=== PATIENT | male | born 1980 | race African-American/Black ===

== ENCOUNTER 2017-03-03 14:34 | Emergency (ER) | payer BC ==
[2017-03-03 14:43] VITALS: TEMP 98.3; BMI 29.2
[2017-03-03] MEDS ORDERED: SODIUM CHLORIDE 1,000 ML IV STA (15:22)
[2017-03-03] MEDS ORDERED: FAMOTIDINE 20 MG/50 ML IVPB 50 ML IVPB ONE ×2 (15:22→15:42)
[2017-03-03] MEDS ORDERED: ONDANSETRON 4 MG/2 ML VIAL IVPUSH ONE (15:22)
--- NOTE | 2017-03-03 15:27 | PDOC ---
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 The vomiting started out once per day on Thursday, but has worsened to every time eats/drinks over the past 24 hours. Notably, he went out drinking prior to the onset on Thursday. He has 2/10 constant non-radiating upper abdominal pain. He had a similar episode of nausea/vomiting two weeks ago when he was on vacation at a resort in [place]. He also drank a large amount of alcohol just prior to the onset at that time. Past History - Past Medical History Allergies/Adverse Reactions: Allergies Allergy/AdvReac Type Severity Reaction Status Date / Time No Known Drug Allergies Allergy Verified 03/03/17 14:35 nut - unspecified Allergy Verified 03/03/17 14:35 shellfish derived Allergy Verified 03/03/17 14:35 SHRIMP Allergy Swelling Uncoded 03/03/17 14:35 Home Medications: Ambulatory Orders Ondansetron [Zofran Odt -] 4 mg SL TID #15 od.tablet 10/31/15 Pantoprazole Sodium [Protonix] 40 mg PO BID #20 tablet. 10/31/15 Sucralfate [Carafate] 1 gm PO QID #56 tablet 10/31/15 Asthma: Yes GI Disorders: Yes (duodenal ulcer) HTN: Yes (border line) - Suicide/Smoking/Psychosocial Hx Smoking History: Never smoked Have you smoked in the past 12 months: No Information on smoking cessation initiated: No Hx Alcohol Use: No Drug/Substance Use Hx: No Substance Use Type: None Review of Systems - Review of Systems Constitutional: No: Chills, Fever, Unexplained wgt Loss HEENTM: No: Nose Congestion, Throat Pain Respiratory: No: Cough, Shortness of Breath Cardiac (ROS): No: Chest Pain, Palpitations ABD/GI: Yes: Nausea, Vomiting, Other (abdominal pain). No: Constipated, Diarrhea : No: Burning, Dysuria Musculoskeletal: No: Back Pain, Neck Pain Integumentary: No: Bruising, Rash Neurological: No: Headache, Numbness, Tingling, Weakness, Dizziness Endocrine: No: Unexplained Weight Gain, Unexplained Weight Loss *Physical Exam - Vital Signs Last Vital Signs Temp Pulse Resp BP Pulse Ox 98.3 F 93 H 18 175/119 100 03/03/17 14:36 03/03/17 14:36 03/03/17 14:36 03/03/17 14:36 03/03/17 14:36 - Physical Exam General Appearance: Yes: Nourished, Appropriately Dressed, Other (well- appearing and nontoxic male texting on phone but conversive with examiner, answers questions appropriately). No: Apparent Distress HEENT: positive: EOMI, Normal Voice, Hearing Grossly Normal. negative: Scleral Icterus (R), Scleral Icterus (L), Nasal Congestion Neck: positive: Trachea midline, Supple. negative: Tender, Rigid Respiratory/Chest: positive: Lungs Clear, Normal Breath Sounds. negative: Respiratory Distress, Crackles, Rhonchi, Stridor, Wheezing Cardiovascular: positive: Regular Rhythm, Regular Rate. negative: Murmur Gastrointestinal/Abdominal: positive: Normal Bowel Sounds, Tender (minimal epigastric tenderness), Soft. negative: Organomegaly, Pulsatile Mass, Guarding Musculoskeletal: positive: Normal Inspection. negative: Decreased Range of Motion, Vertebral Tenderness Extremity: positive: Normal Capillary Refill, Normal Inspection, Normal Range of Motion. negative: Tender, Cyanosis Integumentary: positive: Normal Color, Dry, Warm. negative: Erythema, Rash, Bruising Neurologic: positive: vp care management II-XII NML intact (grossly), Fully Oriented, Alert, Normal Mood/Affect, Normal Response, Motor Strength 5/5 ED Treatment Course - LABORATORY CBC & Chemistry Diagram: 03/03/17 15:29 03/03/17 15:29 Medical Decision Making - Medical Decision Making 36 yom p/w nausea, vomiting, epigastric pain shortly after trip to [place] and nights of heavy drinking. Exam without active vomiting but with epigastric tenderness. DDX includes but not limited to pancreatitis, gastritis, cholecystitis, PUD, constipation/gas. Ordered is CBCD, CMP, Mg, Phos, lipase, NS bolus, Zofran, Pepcid. Lipase is negative, LFTs not concerning, unlikely pancreatitis or cholecystitis. BUN and Cr are elevated and when this is discussed with the Pt he states this is chronic. Symptoms resolve completely with ED medications. Most likely this is gastritis (likely alcoholic) given pattern of flare immediately after drinking. He is counseled to avoid alcohol and take Pepcid OTC bid. He is also counseled on his chronically elevated renal function tests. States this is familial and was diagnosed in his teens. Also has hypertension on vitals which he notes is chronic as well, asymptomatic. He states he will call a new PCP and tray room worker tomorrow morning for continuing care. Referral info given for PCP and nephrology. He is appropriate for discharge home with close outpatient follow up. Return precautions are discussed. *DC/Admit/Observation/Transfer Diagnosis at time of Disposition: Nausea & vomiting Qualifiers: Vomiting type: unspecified Vomiting Intractability: non-intractable Qualified Code(s): R11.2 - Nausea with vomiting, unspecified - Discharge Dispostion Disposition: HOME Condition at time of disposition: Stable Admit: No - Referrals Referrals: Mani Marte MD [Staff Physician] - Alisha Haines MD [Staff Physician] - - Patient Instructions Printed Discharge Instructions: DI for Vomiting -- Adult Additional Instructions: You were seen in the ED today for nausea and vomiting. We did blood work and found high levels of BUN and creatinine, which has been noted on your prior laboratories at [facility]. This is probably not related to your nausea and vomiting. Take a 20 mg tablet of Pepcid twice a day for 10 days. Avoid dairy, spicy foods, and acidic foods. Please follow up with the primary care provider we are referring you to, and also with the tray room worker (kidney doctor) we are referring you to (or your own choices of primary care provider and tray room worker) . You can always return to the ED for any new or worsening symptoms.
--- NOTE | 2017-03-03 15:28 | PDOC ---
Attending Attestation - Resident Resident Name: Ibrahim,Karen - ED Attending Attestation I have performed the following: I have examined & evaluated the patient, The case was reviewed & discussed with the resident, I agree w/resident's findings & plan, Exceptions are as noted - HPI HPI: 03/03/17 15:26 36-year-old male with history of duodenal ulcer many years ago presents with intermittent epigastric discomfort associated with nonbloody nonbilious nausea/ vomiting. Symptoms began while vacationing in [place] and then returned this weekend, both in the setting of alcohol intake. No excessive NSAID use or smoking. No surgical history. - Physicial Exam PE: 03/03/17 15:27 Vital signs normal. Well-appearing, no conjunctival pallor or jaundice Abdomen is soft/nontender/nondistended with minimal epigastric discomfort to palpation - Medical Decision Making 03/03/17 15:27 Patient seen and evaluated with the resident. I agree with the overall evaluation, assessment, and management with the following summary of visit: 36-year-old male with likely alcohol related gastritis, benign abdominal exam without red flags on history or physical. Rule out pancreatitis or biliary pathology, no evidence of bleeding. Labs IV fluids, antacid, antiemetic Reassess and dispo with Pepcid course, GI referral 03/03/17 17:05 lipase normal. no leukocytosis, Hgb normal. Elevated Cr, slightly above baseline with normal K. Per patient and past records , CRI since a teenager. Has seen nephrology in the past. Requesting d/c as he feels better. Will give renal referral and PMD referral, understands return criteria.
[2017-03-03] MEDS ORDERED: ONDANSETRON 4 MG/2 ML VIAL ONE (15:42)
[2017-03-03 16:08] LABS: BASOPHIL 0.6 % (0-2.0); EOSINOPHIL 0.1 % (0-4.5); MCH 26.8 pg (25.7-33.7); MCHC 32.5 g/dl (32.0-35.9); MEAN CELL VOLUME 82.4 fl (80-96); MEAN PLT VOLUME 9.2 fl (7.5-11.1); NEUTROPHILS 87.6 % (42.8-82.8); PLATELET COUNT 294 K/MM3 (134-434); RDW 13.7 % (11.9-15.9); WHITE BLOOD COUNT 9.7 K/mm3 (4.0-10.0)
[2017-03-03 16:44] LABS: ALBUMIN 3.8 g/dl (3.4-5.0); ALK PHOS 87 U/L (45-117); ANION GAP 13 (8-16); CALCIUM 10.1 mg/dL (8.5-10.1); CO2 22 mmol/L (21-32); CREATININE 4.7 mg/dL (0.7-1.3); GLUCOSE,RANDOM 87 mg/dL (74-106); MAGNESIUM 2.2 mg/dL (1.8-2.4); PHOSPHOROUS 3.8 mg/dL (2.5-4.9); SGOT/AST 10 U/L (15-37); SGPT/ALT 21 U/L (12-78); TOT PROT 7.5 g/dl (6.4-8.2)
[2017-03-03 17:31] VITALS: BP 170/117; PULSE 74
== END 2017-03-03 17:31 | disposition home or self-care (01) ==
LOC: JER 14:34
PROC: 3E033GC Introduction of Other Therapeutic Substance into Peripheral Vein, Percutaneous Approach (ICD-10-PCS; principal; 2017-03-03)
DX: K29.20 Alcoholic gastritis without bleeding (principal); I10 Essential (primary) hypertension; J45.909 Unspecified asthma, uncomplicated; K26.9 Duodenal ulcer, unspecified as acute or chronic, without hemorrhage or perforation
CPT/HCPCS: 36415; 80053; 83690; 83735; 84100; 85025; 99283-25